=== PATIENT | female | born 2000 | race Caucasian/White ===

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

== ENCOUNTER 2024-05-14 02:45 | Inpatient (IN) ==
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
[2024-05-14 03:06] LABS: Basophils # (auto) 0.04 K/uL (0.00-0.20); Basophils % (auto) 0.2 %; Eosinophils # (auto) 0.02 K/uL (0.00-0.50); Eosinophils % (auto) 0.1 %; Hematocrit (blood only) 40.7 % (37.0-47.0); Hemoglobin 13.4 g/dl (12.0-16.0); Immature Granulocytes # (auto) 0.12 K/uL (0.01-0.20); Immature Granulocytes % (auto) 0.6 %; Lymphocytes # (auto) 1.96 K/uL (1.20-3.40); Lymphocytes % (auto) 9.2 %; Mean Corpuscular Hemoglobin 28.7 pg (25.0-34.0); Mean Corpuscular Hgb Conc 32.9 g/dL (32.0-36.0); Mean Corpuscular Volume 87.2 fL (80.0-100.0); Mean Platelet Volume 8.7 fL (9.4-12.4); Monocytes # (auto) 1.42 K/uL (0.11-0.59); Monocytes % (auto) 6.7 %; Neutrophils # (auto) 17.74 K/uL (1.40-6.50); Neutrophils % (auto) 83.2 %; Platelet Count 265 K/uL (130-400); RDW Coefficient of Variation 12.8 % (11.5-14.5); RDW Standard Deviation 40.4 fL (36.4-46.3); Red Blood Count 4.67 M/uL (4.20-5.40)
--- NOTE | 2024-05-14 03:11 | Urology Consultation ---
Date of Consultation May 14, 2024 Assessment & Plan (1) Kidney stone: I discussed with the treating emergency room physician the patient is being admitted on the hospitalist service. From a urologic perspective we recommend the following: Provide analgesics and antiemetics as needed Recommend hydrated with intravenous fluids Broad-spectrum antibiotics are being initiatedthe treating emergency room physician has already ordered Rocephin which should continue. Will await further results for patient's culture data and antibiotics be tailored based on these results Please keep the patient n.p.o. At the present time the patient is normotensive without fever. She does have a slight tachycardia but is overall hemodynamically stable. I do feel that the patient will require cystoscopic intervention this can be done on a semielective basis on 05/14/2024 as she appears nontoxic at this time Additional recommendations with forthcoming based on her clinical course as unfolds Please call urology if patient becomes hypotensive or febrile as this may require intervention on a more emergent basis History of Present Illness Reason for Consultation: Nephrolithiasis Bacteremia History of Present Illness This is a 23-year-old female who was seen in the emergency department on 05/13/2024. She was seen at that time secondary to a right flank pain. While priyanka velasco was in the emergency department she did undergo labs and imaging and I did review the studies. A CT scan of the abdomen pelvis showed the patient had a kidney stone in the right upper ureter measuring approximately 7 mm and resulting in mild hydronephrosis with some perinephric fat stranding. At that time the patient also underwent labs where CBC revealed white blood cell count was elevated 14.4. Hemoglobin and hematocrit as well as the platelet count were normal. Chemistry profile showed sodium and potassium as well as the BUN and creatinine were normal. Urinalysis at that time showed turbid urine with pyuria greater than 50 white blood cells per high-power field and 3+ leukocyte Estrace. She was noted to have 4+ bacteria in the specimen but was negative for nitrites. A test at that time was negative. The patient was treated with intravenous antibiotics in the treating emergency room physician did discussed with urology and as the patient had improvement of her presenting pain and she was hemodynamically stable was felt that she was suitable for discharge with outpatient follow-up. The patient was discharged on oral cefdinir and the patient notes that she has yet to start taking this medication. (She did receive intravenous Rocephin while in the emergency department) The patient was called by the emergency department staff and requested to come back to the hospital because during her aformentioned emergency department visit she did have 4 blood cultures drawn all of which were positive for gram-negative bacilli. The patient did have a urine culture sent at that time which was pending. (Of note the patient did have a urine culture on 04/15/2021 which grew E. coli which was pansensitive.) The patientre-presented to the emergency department at the request of the emergency department staff as noted above. Since she has been home from her aformentioned emergency department visit she says she is doing well. She previously had right-sided flank pain which is well-controlled. She denies any fevers, shakes, or chills. She denies any nausea or vomiting. She denies any abdominal pain. She denies any dysuria or hematuria. Patient had repeat labs drawn since arrival to the emergency department and her CBC showed white blood cell count is elevated 21.3. Her hemoglobin and hematocrit as well as platelet count were normal. At the time of my interview she was resting comfortably in bed and she was in no distress Allergies Allergy/AdvReac Type Severity Reaction Status Date / Time No Known Allergies Allergy Mild Unverified 02/24/24 11:53 Home Medications Medication Instructions Recorded Confirmed Type albuterol sulfate 90 mcg/actuation 2 puff inhalation QID PRN 05/14/24 05/14/24 History aerosol inhaler (Ventolin HFA) Shortness Of Breath atomoxetine 40 mg capsule 40 mg PO DAILY 05/14/24 05/14/24 History fluticasone propionate 220 2 puff inhalation BID 05/14/24 05/14/24 History mcg/actuation HFA aerosol inhaler tirzepatide (weight loss) 2.5 2.5 mg subcut WK 05/14/24 05/14/24 History mg/0.5 mL subcutaneous pen injector (Zepbound) Patient History Surgical History History of arthroscopic knee surgery Right History of eye surgery History of cholecystectomy Family History Mother Mental disorder Father Mental disorder Grandmother (Paternal) Gastrointestinal disorder High cholesterol Aunt Diabetes Social History Smoking Status: Never smoker Hx Alcohol Use: No Hx Substance Use: No Preferred Language: Hungarian current occupational status: employed Feels Safe at Home: Yes Review of Systems Review of Systems: All systems reviewed & are unremarkable except as noted in HPI & below Physical Exam Constitutional: WD/WN, vitals as above Eyes: no conjunctival abnormality Wears glasses ENMT: Ears: no hearing impairment and no external ear abnormality Mouth: no oropharynx abnormality Neck: trachea midline Respiratory: normal respiratory effort; no respiratory distress and no labored breathing Cardiovascular: Rate/Rhythm: regular rate and regular rhythm Gastrointestinal (Abdomen): Abdomen is rotund but soft. It is nondistended and nonrigid. There is no pain with palpation Musculoskeletal: No calf tenderness. Feet are warm and well-perfused Skin: no rashes Neurologic: moves all extremities Psychiatric: Orientation: alert and oriented x 3 Affect: + flat affect Genitourinary: No CVA tenderness with percussion bilaterally Results & Data Vital Signs (Past 12 Hours) Vital Signs Temp Pulse Pulse Resp BP BP Pulse Ox 05/14/24 03:06 99 H 05/14/24 02:55 103 H 25 H 121/76 94 05/14/24 02:48 36.8 C 103 H 26 H 121/76 95 PG Care Time/CCT Total # of Minutes Spent Total Time Spent with Patient: Total time spent is greater than 50% in coordination of care (as documented) at patient's floor/unit and/or counseling patient: Coding Level of Care Code 74720 IN/OBS CONSULT LVL 5,80M Diagnoses Kidney stone N20.0
[2024-05-14 03:26] LABS: Albumin Level 3.9 gm/dl (3.4-5.0); Bilirubin Direct 0.3 mg/dl (0-0.2); Bilirubin,Total 2.3 mg/dl (0.2-1.0); Calcium 8.8 mg/dl (8.6-10.3); Creatinine Clr Calc Pharmacy 127.6 ml/min; Magnesium 1.5 mg/dl (1.7-2.4); Potassium 3.7 mmol/L (3.5-5.1); Total Protein 7.4 gm/dl (6.0-8.3)
[2024-05-14] MEDS: SODIUM CHLORIDE 0.9% 1,000 ML IV SCH ×2 (03:44→15:26)
[2024-05-14] MEDS: cefTRIAXone SODIUM 2,000 MG/50 ML BAG IV STA (03:56)
[2024-05-14] MEDS: SODIUM CHLORIDE 0.9% 500 ML IV ONE (03:57)
[2024-05-14 04:46] LABS: Troponin I High Sensitivity 3.4 pg/ml (0-14)
--- NOTE | 2024-05-14 06:04 | History & Physical Report ---
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 Patient was in the ER yesterday with right flank pain and vomiting and imaging studies showed 3.7 mm obstructing kidney stone in the right upper ureter with some surrounding perinephric stranding. As the patient's pain was controlled and was doing okay was discharged with antibiotic and pain medication and to follow-up with urology as outpatient. But 4/ 4 of the blood cultures came back positive for gram- negative bacilli and she was called back to the ER. Seen by urology in the ER and plan for cystoscopy intervention soon. Currently patient resting comfortably hemodynamically stable. Says pain is better now. Currently denies any nausea. No fevers. Micturating okay. No hematuria. No chest pain or shortness of breath. No abdominal pain. No runny nose or sore throat or cough. Bacteremia and renal colic 4/4 bottles positive for gram-negative bacilli CT scan done yesterday showed right upper ureter 3.7 mm calculus with mild hydronephrosis and surrounding peripelvic and perinephric fat stranding Plan for cystoscopy Empiric Rocephin IV fluids N.p.o. for now Pain control ADHD Continue home medications Asthma Continue home inhalers Morbid obesity Counseling DVT prophylaxis SCDs for now Disposition Med/telemetry Full code History of Present Illness Chief Complaint: Bacteremia, kidney stone Primary Care Provider: Nicole Schumacher PA-C 23-year-old female with past medical history significant for mild intermittent asthma, morbid obesity, iron deficiency anemia due to chronic blood loss, attention deficit hyperactivity disorder, Asperger's disorder, 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 Patient was in the ER yesterday with right flank pain and vomiting and imaging studies showed 3.7 mm obstructing kidney stone in the right upper ureter with some surrounding perinephric stranding. As the patient's pain was controlled and was doing okay was discharged with antibiotic and pain medication and to follow-up with urology as outpatient. But 4/ 4 of the blood cultures came back positive for gram- negative bacilli and she was called back to the ER. Seen by urology in the ER and plan for cystoscopy intervention soon. Currently patient resting comfortably hemodynamically stable. Says pain is better now. Currently denies any nausea. No fevers. Micturating okay. No hematuria. No chest pain or shortness of breath. No abdominal pain. No runny nose or sore throat or cough. Past medical history. As mentioned above Past surgical history. Right knee arthroscopy. Laparoscopic cholecystectomy. Strabismus surgery. Social history. No smoking. No alcohol use. No drug use. Family history. Great aunt had diabetes. Father had mental disorder. Mother had mental disorder. Allergies Allergy/AdvReac Type Severity Reaction Status Date / Time No Known Allergies Allergy Mild Unverified 02/24/24 11:53 Home Medications Medication Instructions Recorded Confirmed Type albuterol sulfate 90 mcg/actuation 2 puff inhalation QID PRN 05/14/24 05/14/24 History aerosol inhaler (Ventolin HFA) Shortness Of Breath atomoxetine 40 mg capsule 40 mg PO DAILY 05/14/24 05/14/24 History fluticasone propionate 220 2 puff inhalation BID 05/14/24 05/14/24 History mcg/actuation HFA aerosol inhaler tirzepatide (weight loss) 2.5 2.5 mg subcut WK 05/14/24 05/14/24 History mg/0.5 mL subcutaneous pen injector (Zepbound) Past Med/Surg History Problem List (Updated 05/14/24 @ 07:38 by BENJAMIN Lundberg) Calculus of proximal right ureter UTI (urinary tract infection) (Acute) Left ureteral stone (Acute) Sepsis (Acute) Bacteremia (Acute) Kidney stone (Acute) Urgency incontinence Nocturia Urinary incontinence Knee pain, bilateral Abnormal weight gain Kidney stones Asthma Dietary counseling and surveillance Obesity Bipolar disorder (Chronic) Asperger syndrome (Chronic) ADHD (Chronic) Surgical History History of arthroscopic knee surgery Right History of eye surgery History of cholecystectomy Family History Mother Mental disorder Father Mental disorder Grandmother (Paternal) Gastrointestinal disorder High cholesterol Aunt Diabetes Social History Smoking Status: Never smoker Hx Alcohol Use: No Hx Substance Use: No Preferred Language: Georgian current occupational status: employed Feels Safe at Home: Yes Review of Systems Review of Systems: All systems reviewed & are unremarkable except as noted in HPI & below Physical Exam Physical Exam: General- Not in distress. Head- atraumatic ENT- oropharynx clear Neck- supple, no JVD. Lungs- clear to auscultation no wheezing or crackles Heart- regular rate and rhythm; no murmur, no gallop. Abdomen- normal bowel sounds, soft, nontender, no distension Extremities- no pretibial edema, no erythema seen Neuro- alert, oriented no facial palsy; no dysarthria; moves extremities Results & Data Results & Data Vital Signs (Past 12 Hours) Vital Signs Temp Pulse Pulse Resp BP BP Pulse Ox 05/14/24 05:25 94 H 22 112/71 99 05/14/24 04:22 94 H 24 125/89 99 05/14/24 03:42 99 H 24 111/71 98 05/14/24 03:06 99 H 05/14/24 02:55 103 H 25 H 121/76 94 05/14/24 02:48 36.8 C 103 H 26 H 121/76 95 O2 Del Method 05/14/24 05:25 Room Air 05/14/24 04:22 Room Air 05/14/24 03:42 Room Air 05/14/24 03:06 05/14/24 02:55 05/14/24 02:48 Diagnostic Findings Laboratory Results WBC 21.30 K/ul (4.8-10.8) H 05/14/24 02:54 RBC 4.67 M/uL (4.20-5.40) 05/14/24 02:54 Hgb 13.4 g/dl (12.0-16.0) 05/14/24 02:54 Hct 40.7 % (37.0-47.0) 05/14/24 02:54 MCV 87.2 fL (80.0-100.0) 05/14/24 02:54 MCH 28.7 pg (25.0-34.0) 05/14/24 02:54 MCHC 32.9 g/dL (32.0-36.0) 05/14/24 02:54 RDW Std Deviation 40.4 fL (36.4-46.3) 05/14/24 02:54 RDW Coeff of Daniel 12.8 % (11.5-14.5) 05/14/24 02:54 Plt Count 265 K/uL (130-400) 05/14/24 02:54 MPV 8.7 fL (9.4-12.4) L 05/14/24 02:54 Immature Gran % (Auto) 0.6 % 05/14/24 02:54 Neut % (Auto) 83.2 % 05/14/24 02:54 Lymph % (Auto) 9.2 % 05/14/24 02:54 Hubbard % (Auto) 6.7 % 05/14/24 02:54 Eos % (Auto) 0.1 % 05/14/24 02:54 Baso % (Auto) 0.2 % 05/14/24 02:54 Neut # (Auto) 17.74 K/uL (1.40-6.50) H 05/14/24 02:54 Lymph # (Auto) 1.96 K/uL (1.20-3.40) 05/14/24 02:54 Hubbard # (Auto) 1.42 K/uL (0.11-0.59) H 05/14/24 02:54 Eos # (Auto) 0.02 K/uL (0.00-0.50) 05/14/24 02:54 Baso # (Auto) 0.04 K/uL (0.00-0.20) 05/14/24 02:54 Immature Gran # (Auto) 0.12 K/uL (0.01-0.20) 05/14/24 02:54 Sodium 137 mmol/L (136-145) 05/14/24 02:54 Potassium 3.7 mmol/L (3.5-5.1) 05/14/24 02:54 Chloride 106 mmol/L (98-107) 05/14/24 02:54 Carbon Dioxide 23 mmol/L (21-32) 05/14/24 02:54 Anion Gap 8 (3-11) 05/14/24 02:54 BUN 15 mg/dl (6-23) 05/14/24 02:54 Creatinine 1.36 mg/dl (0.6-1.2) H D 05/14/24 02:54 Est Cr Clr Drug Dosing 127.6 ml/min 05/14/24 02:54 eGFR 55.44 05/14/24 02:54 BUN/Creatinine Ratio 11.0 (10-20) 05/14/24 02:54 Glucose 119 mg/dl (70-99(Fasting)) H 05/14/24 02:54 Lactate 0.8 mmol/L (0.4-2.0) 05/14/24 04:03 Calcium 8.8 mg/dl (8.6-10.3) 05/14/24 02:54 Magnesium 1.5 mg/dl (1.7-2.4) L 05/14/24 02:54 Total Bilirubin 2.3 mg/dl (0.2-1.0) H D 05/14/24 02:54 Direct Bilirubin 0.3 mg/dl (0-0.2) H 05/14/24 02:54 AST 15 U/L (13-39) 05/14/24 02:54 ALT 10 U/L (7-52) 05/14/24 02:54 Alkaline Phosphatase 95 U/L (34-104) 05/14/24 02:54 Troponin I High Sens 3.4 pg/ml (0-14) 05/14/24 02:54 Total Protein 7.4 gm/dl (6.0-8.3) 05/14/24 02:54 Albumin 3.9 gm/dl (3.4-5.0) 05/14/24 02:54 Procalcitonin 2.39 ng/ml (0-0.5) H 05/14/24 02:54 ECG Additional Comments: ECG. Normal sinus rhythm with rate of 99. Nonspecific ST and T wave abnormality. QTc 454 Code Status & VTE Plan VTE Prophylaxis Plan VTE Prophylaxis will be ordered: Yes
[2024-05-14 06:33] LABS: Appearance Urine Turbid (Clear); Bacteria Urine Automated 1+ (None Seen); Bilirubin Urine Negative (Negative); Blood Urine 2+ (Negative); Color Urine Yellow; Glucose Urine UA Negative (Negative); Ketones Urine Trace (Negative); Leukocyte Esterase Urine 3+ (Negative); Nitrite Urine Negative (Negative); Protein Urine Trace (Negative); RBC Urine Automated >20 /hpf (0-2); Specific Gravity Urine 1.017 (1.000-1.030); Urobilinogen Urine Negative (Negative); WBC Urine Automated >50 /hpf (0-5); pH Urine 5.5 (4.5-7.5)
--- NOTE | 2024-05-14 07:37 | Urology Progress Note ---
<Statement entered by Jamil Ulrich MD - 05/14/24 11:27> This is a 23-year-old female with a right ureteral stone, UTI and bacteremia. In this setting I would recommend that we proceed with cystoscopy, right retrograde pyelogram and right ureteral stent placement to allow decompression of the right kidney. We discussed risks and benefits of surgery. She expressed understanding and would like to proceed. Date of Service May 14, 2024 Assessment & Plan (1) Calculus of proximal right ureter: (2) UTI (urinary tract infection): (3) Bacteremia: Plan: Follow-up of right proximal ureteral stone, UTI and bacteremia Patient afebrile, hemodynamically stable Labs reviewedcreatinine 1.36 today, WBC 21.3 Blood cultures with gram-negative bacilli Urine culture pending Continue with broad-spectrum antibiotics and narrow per sensitivity data when available Given obstructing right ureteral calculus, UTI and bacteremia, recommend cystoscopy and right ureteral stent placement for source control Ureteral stents were discussed in detail, patient agreeable to surgical intervention We discussed that stone surgery would take place at a later date after acute infection has resolved Proceed to OR today for cystoscopy and right ureteral stent placement Risks and benefits of procedure to be reviewed with patient by Dr. Ulrich Keep NPO for procedure Continue supportive care, antibiotics and medical management per hospital medicine team Subjective Patient seen and examined in the emergency department this morning. She is awake and sitting up in litter. Minimal flank pain at present. Denies nausea, vomiting, fever or chills. Review of Systems Constitutional: as per Subjective / HPI Genitourinary: as per Subjective / HPI Physical Exam Constitutional: well developed, well nourished and + obese; no acute distress Respiratory: normal respiratory effort; no respiratory distress and no labored breathing Gastrointestinal (Abdomen): Inspection/Auscultation: abdomen normal to inspection Musculoskeletal: Head/Neck/Chest: normocephalic Neurologic: moves all extremities and awake Psychiatric: Orientation: alert and oriented x 3 Results & Data Vital Signs (Past 12 Hours) Vital Signs Temp Pulse Pulse Resp BP BP Pulse Ox 05/14/24 06:51 96 H 24 140/89 97 05/14/24 06:21 101 H 20 147/77 H 97 05/14/24 05:25 94 H 22 112/71 99 05/14/24 04:22 94 H 24 125/89 99 05/14/24 03:42 99 H 24 111/71 98 05/14/24 03:06 99 H 05/14/24 02:55 103 H 25 H 121/76 94 05/14/24 02:48 36.8 C 103 H 26 H 121/76 95 O2 Del Method 05/14/24 06:51 Room Air 05/14/24 06:21 Room Air 05/14/24 05:25 Room Air 05/14/24 04:22 Room Air 05/14/24 03:42 Room Air 05/14/24 03:06 05/14/24 02:55 05/14/24 02:48 PG Care Time/CCT Total # of Minutes Spent Total Time Spent with Patient: Total time spent is greater than 50% in coordination of care (as documented) at patient's floor/unit and/or counseling patient: Coding Level of Care Code None Diagnoses Calculus of proximal right ureter N20.1 UTI (urinary tract infection) N39.0 Bacteremia R78.81
--- NOTE | 2024-05-14 09:19 | Anesthesiology Consultation ---
Date of Service May 14, 2024 Assessment & Plan (1) Encounter for pre-operative examination: Chart Review Chart Review: Acceptable Risk for Surgery and Patient NOT seen in Pre Admission Testing Consults Requested none History Surgery Operation Date: 05/14/24 08:10 Proposed Procedures p Cystoscopy, Right Ureteral Stent Placement - Jamil Ulrich MD Height/Weight Height: 6 ft 3 in Weight: 199.6 kg Allergies Allergy/AdvReac Type Severity Reaction Status Date / Time No Known Allergies Allergy Mild Unverified 02/24/24 11:53 Medications Home Medications Medication Instructions Recorded Confirmed Last Taken albuterol sulfate 90 mcg/actuation 2 puff inhalation QID PRN 05/14/24 05/14/24 Unknown aerosol inhaler (Ventolin HFA) Shortness Of Breath atomoxetine 40 mg capsule 40 mg PO DAILY 05/14/24 05/14/24 Unknown fluticasone propionate 220 2 puff inhalation BID 05/14/24 05/14/24 Unknown mcg/actuation HFA aerosol inhaler tirzepatide (weight loss) 2.5 2.5 mg subcut WK 05/14/24 05/14/24 Unknown mg/0.5 mL subcutaneous pen injector (Zepbound) Past Family History Family History Mother Mental disorder Father Mental disorder Grandmother (Paternal) Gastrointestinal disorder High cholesterol Aunt Diabetes Past Surgical History Surgical History History of arthroscopic knee surgery Right History of eye surgery History of cholecystectomy Social History Smoking Status: Never smoker Hx Alcohol Use: No Hx Substance Use: No Physical Exam Vital Signs Last Vital Signs Temp 98.2 F 05/14/24 02:48 Pulse 93 H 05/14/24 09:14 Resp 22 05/14/24 07:30 BP 144/92 H 05/14/24 07:30 Pulse Ox 99 05/14/24 07:30 O2 Del Method Room Air 05/14/24 07:30 Testing Laboratory Results 05/14/24 02:54 05/14/24 02:54 Urine Color Yellow 05/14/24 06:22 Urine Appearance Turbid (Clear) A 05/14/24 06:22 Urine pH 5.5 (4.5-7.5) 05/14/24 06:22 Ur Specific [place] 1.017 (1.000-1.030) 05/14/24 06:22 Urine Protein Trace (Negative) H 05/14/24 06:22 Urine Glucose (UA) Negative (Negative) 05/14/24 06:22 Urine Ketones Trace (Negative) H 05/14/24 06:22 Urine Nitrite Negative (Negative) 05/14/24 06:22 Ur Leukocyte Esterase 3+ (Negative) H 05/14/24 06:22 Urine WBC (Auto) >50 /hpf (0-5) H 05/14/24 06:22 Urine RBC (Auto) >20 /hpf (0-2) H 05/14/24 06:22 U Hyaline Cast (Auto) 3-5 /lpf (0-2) H 05/14/24 06:22 U Epithel Cells (Auto) 3-5 /hpf (0-2) H 05/14/24 06:22 Urine Bacteria (Auto) 1+ (None Seen) H 05/14/24 06:22 Electrocardiogram Date: 05/14/24 Findings: + NSR @
[2024-05-14] MEDS ORDERED: LIDOCAINE 2% 2 ML VIAL/AMP(20MG/ML) INFIL ONE ×2 (09:34→10:09)
[2024-05-14] MEDS ORDERED: MIDAZOLAM HCL 1 MG/ML 2ML VIAL ONE ×2 (09:35→10:11)
[2024-05-14] MEDS ORDERED: fentaNYL citrate PF 100 MCG/2 ML VIAL ONE ×2 (09:35→10:11)
[2024-05-14] MEDS ORDERED: PROPOFOL IV EMULSION 10 MG/ML 20 ML VIAL IV ONE ×3 (09:35→11:52)
[2024-05-14] MEDS ORDERED: ONDANSETRON INJ 2 MG/ML 2 ML VIAL ONE ×2 (10:09→11:55)
[2024-05-14] MEDS ORDERED: ROCURONIUM BROMIDE 10 MG/ML 5 ML VIAL IV ONE (10:09)
[2024-05-14] MEDS ORDERED: DEXAMETHASONE SOD INJ 4 MG/ML VIAL ONE (10:09)
[2024-05-14 10:19] LABS: Pregnancy Test, Urine Negative (Negative)
[2024-05-14] MEDS ORDERED: GLYCOPYRROLATE 0.2 MG/ML VIAL ONE (10:39)
[2024-05-14] MEDS ORDERED: KETAMINE HCL 10MG/ML SYR ONE (10:42)
[2024-05-14] MEDS: DIATRIZOATE MEGLUMINE 30% 100ML VIAL INSTIL ONE (12:08)
--- NOTE | 2024-05-14 12:12 | Operative Report ---
[facility] Post Operative Report Pre & Post Diagnosis Operation Date: 05/14/24 08:10 Pre-Op Diagnosis: (1) Calculus of proximal right ureter (2) UTI (urinary tract infection) (3) Bacteremia Post-Op Diagnosis: (1) Calculus of proximal right ureter (2) UTI (urinary tract infection) (3) Bacteremia I identified the patient and participated in the time-out.: Yes Procedure Operation Date: 05/14/24 08:10 Actual Procedures p Cystoscopy, Right Retrograde Pyelogram, Right Ureteral Stent Placement(Right) - Jamil Ulrich MD Surgeon Jamil Ulrich MD Director Of Market Intelligence None Estimated Blood Loss 0 Findings Consistent with Post-Op Diagnosis Specimens None Drains 6 Turkmen by 26 cm double-J ureteral stent in the right ureter Anesthesia Type MAC Complications none Disposition Accompanied Patient To Recovery: Yes Disposition: Recovery Room Indications This is a 23-year-old female recently seen in the emergency department with urinary tract infection and a right ureteral stone as well as bacteremia. She is brought to the OR for right ureteral stent placement for source control. Description of Procedure The patient was identified in the holding area and informed consent was confirmed. She was marked on the right side, then was taken to the operating room where anesthesia was initiated. She was placed in the dorsal lithotomy position with all pressure points appropriately padded. She was prepped and draped in the usual sterile fashion and a preoperative timeout was performed. A well-lubricated cystoscope was inserted per urethra and panendoscopy was performed. The urethra was normal in appearance. The bladder was of normal size with ureteral orifices in orthotopic position. The right ureteral orifice was identified and cannulated with a 5 Turkmen open- ended catheter. A retrograde pyelogram was performed demonstrating the distal ureter was normal in course and caliber. I tried to minimize instillation of contrast to the kidney to avoid pyelovenous backflow. A 0.038" ZIPwire was advanced to the level of the kidney under fluoroscopic guidance. Over the wire, a 6 Turkmen x 26 centimeter double-J ureteral stent was advanced. When the wire was removed, the proximal curl was visualized in the kidney with x-ray, and the distal curl visualized in the bladder with the cystoscope. There was drainage of turbid urine through the stent. At this point the bladder was drained and all instrumentation was removed. The patient was then awakened from anesthesia and was brought to the PACU in stable condition. I attest to the content of the Intraoperative Record and any orders documented therein. Any exceptions are noted below.
--- NOTE | 2024-05-14 13:23 | Fluoroscopy Report ---
FL retrograde includes kub CLINICAL HISTORY: RT CYSTO COMPARISON STUDY: CT of the abdomen and pelvis May 13, 2024. FLUOROSCOPY TIME: 13 seconds. Ka,r: 6.2585 mGy FLUOROSCOPIC IMAGES: 1 FINDINGS: Fluoroscopy was provided during right retrograde exam with right ureteral stent placement. Proximal aspect of the stent projects over the right renal pelvis. There are cholecystectomy clips. IMPRESSION: Fluoroscopy provided during right retrograde exam with right ureteral stent placement. ACT 112: Negative or not required by law. Electronically signed by: Sylvester Gottlieb M.D. 05/14/2024 1:22 PM
[2024-05-14] MEDS ORDERED: HYDROmorphone INJ 0.5 MG/0.5 ML SYR IV PRN ×2 (14:12)
[2024-05-14] MEDS ORDERED: ALBUTEROL HFA 8 GM INHALER INH PRN (14:12)
[2024-05-14] MEDS ORDERED: NITROGLYCERIN SL 0.4 MG/TAB TAB SL PRN (14:12)
[2024-05-14] MEDS ORDERED: POLYETHYLENE (MIRALAX) 17 GM PACK PO PRN (14:12)
--- NOTE | 2024-05-14 14:21 | Anesthesiology Progress Note ---
Date of Service May 14, 2024 Anesthesia Post Procedure Vital Signs Vital Signs: Temp Pulse Pulse Pulse Resp BP BP 05/14/24 13:30 98 H 18 116/81 05/14/24 13:20 97.9 F 96 H 18 117/77 05/14/24 13:10 94 H 22 120/80 05/14/24 13:00 95 H 24 121/78 05/14/24 12:50 96 H 20 109/71 05/14/24 12:40 94 H 20 106/72 05/14/24 12:30 95 H 18 102/69 05/14/24 12:25 93 H 20 109/71 05/14/24 12:19 99.7 F H 100 H 18 109/73 05/14/24 10:55 05/14/24 10:35 98.4 F 108 H 16 05/14/24 10:14 98 H 22 05/14/24 09:14 93 H 05/14/24 07:30 94 H 22 05/14/24 06:51 96 H 24 05/14/24 06:21 101 H 20 05/14/24 05:25 94 H 22 05/14/24 04:22 94 H 24 05/14/24 03:42 99 H 24 05/14/24 03:06 99 H 05/14/24 02:55 103 H 25 H 05/14/24 02:48 98.2 F 103 H 26 H 121/76 BP Pulse Ox O2 Del Method O2 Flow Rate 05/14/24 13:30 98 Room Air 05/14/24 13:20 98 Room Air 05/14/24 13:10 100 Room Air 05/14/24 13:00 98 Room Air 05/14/24 12:50 98 Room Air 05/14/24 12:40 98 Room Air 05/14/24 12:30 100 Room Air 05/14/24 12:25 100 Oxymask 3 05/14/24 12:19 100 Oxymask 6 05/14/24 10:55 Room Air 05/14/24 10:35 115/73 98 Room Air 05/14/24 10:14 119/78 99 Room Air 05/14/24 09:14 05/14/24 07:30 144/92 H 99 Room Air 05/14/24 06:51 140/89 97 Room Air 05/14/24 06:21 147/77 H 97 Room Air 05/14/24 05:25 112/71 99 Room Air 05/14/24 04:22 125/89 99 Room Air 05/14/24 03:42 111/71 98 Room Air 05/14/24 03:06 05/14/24 02:55 121/76 94 05/14/24 02:48 95 Pain Intensity Right Flank: Pain Intensity: 4 Transfer of Care Handoff Completed per policy Notes Mental Status: alert / awake / arousable and participated in evaluation Patient Amnestic to Procedure: Yes Nausea / Vomiting: adequately controlled Pain: adequately controlled Airway Patency, RR, SpO2: stable & adequate BP & HR: stable & adequate Hydration State: stable & adequate Anesthetic Complications: no major complications apparent and Pt Satisfied with anesthetic care
--- NOTE | 2024-05-14 14:32 | Hospitalist Progress Note ---
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 E coli bacteremia Right-sided ureteral stone status post cystoscopy and stent placement on 05/14 Patient presented with flank pain and vomiting CT abdomen pelvis showed right upper ureter 3.7 cm calculus with mild hydronephrosis. 4 out of 4 blood culture positive for E. coli Continue on IV antibiotics with ceftriaxone 2 g; plan to treat with IV antibiotics for few days before transitioning to p.o. antibiotics Follow-up with urology as outpatient Encourage oral hydration ADHD Continue home medications Asthma Continue home inhalers Morbid obesity Counseling DVT prophylaxis SCDs for now Disposition Med/telemetry Full code Please note the above document was generated using voice recognition software. It may contain grammatical, syntax or spelling errors. Any formal questions or concerns about the content, text or information contained within the body of this dictation should be directly addressed to the provider for clarification Admission and Anticipated Discharge Date Admission Date: May 14, 2024 Subjective Patient seen after the procedure. She is comfortable; denies pain or discomfort. Denies fever, chills, chest pain, shortness of breath, abdominal pain or urinary symptoms. Review of Systems Review of Systems: All systems reviewed & are unremarkable except as noted in Subjective Physical Exam Physical Exam: General- Not in distress. Head- atraumatic ENT- oropharynx clear Neck- supple, no JVD. Lungs- clear to auscultation no wheezing or crackles Heart- regular rate and rhythm; no murmur, no gallop. Abdomen- normal bowel sounds, soft, nontender, no distension Extremities- no pretibial edema, no erythema seen Neuro- alert, oriented no facial palsy; no dysarthria; moves extremities Results & Data Results & Data Vital Signs (Past 12 Hours) Vital Signs Temp Pulse Pulse Pulse Resp BP BP 05/14/24 13:30 98 H 18 116/81 05/14/24 13:20 36.6 C 96 H 18 117/77 05/14/24 13:10 94 H 22 120/80 05/14/24 13:00 95 H 24 121/78 05/14/24 12:50 96 H 20 109/71 05/14/24 12:40 94 H 20 106/72 05/14/24 12:30 95 H 18 102/69 05/14/24 12:25 93 H 20 109/71 05/14/24 12:19 37.6 C H 100 H 18 109/73 05/14/24 10:55 05/14/24 10:35 36.9 C 108 H 16 05/14/24 10:14 98 H 22 05/14/24 09:14 93 H 05/14/24 07:30 94 H 22 05/14/24 06:51 96 H 24 05/14/24 06:21 101 H 20 05/14/24 05:25 94 H 22 05/14/24 04:22 94 H 24 05/14/24 03:42 99 H 24 05/14/24 03:06 99 H 05/14/24 02:55 103 H 25 H 05/14/24 02:48 36.8 C 103 H 26 H 121/76 BP Pulse Ox O2 Del Method O2 Flow Rate 05/14/24 13:30 98 Room Air 05/14/24 13:20 98 Room Air 05/14/24 13:10 100 Room Air 05/14/24 13:00 98 Room Air 05/14/24 12:50 98 Room Air 05/14/24 12:40 98 Room Air 05/14/24 12:30 100 Room Air 05/14/24 12:25 100 Oxymask 3 05/14/24 12:19 100 Oxymask 6 05/14/24 10:55 Room Air 05/14/24 10:35 115/73 98 Room Air 05/14/24 10:14 119/78 99 Room Air 05/14/24 09:14 05/14/24 07:30 144/92 H 99 Room Air 05/14/24 06:51 140/89 97 Room Air 05/14/24 06:21 147/77 H 97 Room Air 05/14/24 05:25 112/71 99 Room Air 05/14/24 04:22 125/89 99 Room Air 05/14/24 03:42 111/71 98 Room Air 05/14/24 03:06 05/14/24 02:55 121/76 94 05/14/24 02:48 95
--- NOTE | 2024-05-14 15:17 | Electrocardiogram Report ---
Test Reason : Blood Pressure : */* mmHG Vent. Rate : 99 BPM Atrial Rate : 99 BPM P-R Int : 120 ms QRS Dur : 90 ms QT Int : 354 ms P-R-T Axes : 44 31 67 degrees QTcB Int : 454 ms Normal sinus rhythm Nonspecific ST and T wave abnormality Abnormal ECG When compared with ECG of 26-Apr-2020 17:52, Vent. rate has increased by 36 bpm T wave inversion now evident in Lateral leads Confirmed by Yomi Reno ([id number]) on 05/14/2024 3:17:41 PM Referred By: REFERRED SELF Confirmed By: Yomi Reno
[2024-05-14] MEDS: ATOMOXETINE HCL 40 MG CAPSULE PO SCH (16:33)
[2024-05-14] MEDS: FLUTICASONE FUROATE 100MCG 14 PUFFS/INHALER INH SCH (16:33)
[2024-05-15] MEDS: cefTRIAXone SODIUM 2,000 MG/50 ML BAG IV SCH (06:00)
[2024-05-15 08:40] LABS: Basophils # (auto) 0.03 K/uL (0.00-0.20); Basophils % (auto) 0.2 %; Eosinophils # (auto) 0.04 K/uL (0.00-0.50); Eosinophils % (auto) 0.3 %; Hematocrit (blood only) 38.6 % (37.0-47.0); Hemoglobin 12.8 g/dl (12.0-16.0); Immature Granulocytes # (auto) 0.26 K/uL (0.01-0.20); Immature Granulocytes % (auto) 1.7 %; Lymphocytes # (auto) 1.95 K/uL (1.20-3.40); Lymphocytes % (auto) 12.7 %; Mean Corpuscular Hemoglobin 28.6 pg (25.0-34.0); Mean Corpuscular Hgb Conc 33.2 g/dL (32.0-36.0); Mean Corpuscular Volume 86.2 fL (80.0-100.0); Mean Platelet Volume 9.3 fL (9.4-12.4); Monocytes # (auto) 1.11 K/uL (0.11-0.59); Monocytes % (auto) 7.2 %; Neutrophils # (auto) 11.93 K/uL (1.40-6.50); Neutrophils % (auto) 77.9 %; Platelet Count 263 K/uL (130-400); RDW Coefficient of Variation 12.6 % (11.5-14.5); RDW Standard Deviation 39.9 fL (36.4-46.3); Red Blood Count 4.48 M/uL (4.20-5.40); White Blood Count 15.32 K/ul (4.8-10.8)
[2024-05-15 09:05] LABS: BUN Creatinine Ratio 13.3 (10-20); Calcium 8.5 mg/dl (8.6-10.3); Creatinine Clr Calc Pharmacy 202.4 ml/min; Potassium 3.5 mmol/L (3.5-5.1)
--- NOTE | 2024-05-15 10:10 | Hospitalist Progress Note ---
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 E coli bacteremia Right-sided ureteral stone status post cystoscopy and stent placement on 05/14 Patient presented with flank pain and vomiting CT abdomen pelvis showed right upper ureter 3.7 cm calculus with mild hydronephrosis. 4 out of 4 blood culture positive for E. coli Reviewed blood culture negative so far Continue on IV antibiotics with ceftriaxone 2 g; plan to treat with IV antibiotics for few days before transitioning to p.o. antibiotics Follow-up with urology as outpatient Encourage oral hydration Acute kidney injury- Creatinine elevated to 1.36 on 05/14/2024; resolved with IV hydration ADHD Continue home medications Asthma Continue home inhalers Morbid obesity Counseling DVT prophylaxis SCDs for now Disposition Med/telemetry Full code Updated patient's grandmother over the phone on patient's request. Time spent evaluating patient, direct bedside care, chart review, placing orders, interpretation of diagnostic studies, discussion with consultants, patient, and family members, as well as other required patient management activities is 50 minutes Please note the above document was generated using voice recognition software. It may contain grammatical, syntax or spelling errors. Any formal questions or concerns about the content, text or information contained within the body of this dictation should be directly addressed to the provider for clarification Admission and Anticipated Discharge Date Admission Date: May 14, 2024 Subjective Patient seen and examined at bedside. Comfortable; not in distress. Denies fever, chills, chest pain, shortness of breath, abdominal pain or urinary symptoms. No significant overnight events Review of Systems Review of Systems: All systems reviewed & are unremarkable except as noted in Subjective Physical Exam Physical Exam: General- Not in distress. Head- atraumatic ENT- oropharynx clear Neck- supple, no JVD. Lungs- clear to auscultation no wheezing or crackles Heart- regular rate and rhythm; no murmur, no gallop. Abdomen- normal bowel sounds, soft, nontender, no distension Extremities- no pretibial edema, no erythema seen Neuro- alert, oriented no facial palsy; no dysarthria; moves extremities Results & Data Results & Data Vital Signs (Past 12 Hours) Vital Signs Temp Pulse Pulse Pulse Resp BP Pulse Ox 05/15/24 07:53 36.5 C 112 H 18 116/78 95 05/15/24 03:51 36.6 C 94 H 18 107/60 94 05/14/24 23:48 37.6 C H 112 H 18 98/61 L 93 05/14/24 22:42 114 H O2 Del Method 05/15/24 07:53 Room Air 05/15/24 03:51 Room Air 05/14/24 23:48 Room Air 05/14/24 22:42
--- NOTE | 2024-05-15 10:20 | Urology Progress Note ---
Date of Service May 15, 2024 Assessment & Plan (1) Calculus of proximal right ureter: (2) Bacteremia: (3) UTI (urinary tract infection): Plan 23 yo/F admitted for bacteremia and an obstructing right ureteral stone. - Pt POD#1 s/p cystoscopy and right ureteral stent placement - Afebrile, tachycardic, normotensive - Subjectively doing well - Lab work reviewed - creatinine 0.83, WBC downtrending (15.32) - Blood cultures 2/ with E. coli - Urine culture 2/ with more than 3 types of organisms present, all high counts - Repeat blood cultures / with no growth x 24 hours - Repeat urine culture / pending - Continue with broad-spectrum antibiotics and narrow per sensitivity data when available - Tolerating right ureteral stent with minimal bother - Expected clinical course reviewed, all questions answered - Will arrange outpatient follow-up with our service to discuss definitive stone treatment - will sign off, recall as needed Admission and Anticipated Discharge Date Admission Date: May 14, 2024 Subjective Patient seen and examined at bedside this morning. She is awake and sitting up in bed. No acute issues overnight. Denies flank pain. Voiding spontaneously. No hematuria or dysuria. Denies nausea, vomiting, fever or chills. Review of Systems Constitutional: as per Subjective / HPI Genitourinary: as per Subjective / HPI Physical Exam Constitutional: + obese; no acute distress Respiratory: normal respiratory effort; no respiratory distress and no labored breathing Gastrointestinal (Abdomen): Inspection/Auscultation: abdomen normal to inspection Musculoskeletal: Head/Neck/Chest: normocephalic Neurologic: moves all extremities and awake Psychiatric: Orientation: alert and oriented x 3 Results & Data Vital Signs (Past 12 Hours) Vital Signs Temp Pulse Pulse Pulse Resp BP Pulse Ox 05/15/24 07:53 36.5 C 112 H 18 116/78 95 05/15/24 03:51 36.6 C 94 H 18 107/60 94 05/14/24 23:48 37.6 C H 112 H 18 98/61 L 93 05/14/24 22:42 114 H O2 Del Method 05/15/24 07:53 Room Air 05/15/24 03:51 Room Air 05/14/24 23:48 Room Air 05/14/24 22:42 PG Care Time/CCT Total # of Minutes Spent Total Time Spent with Patient: Total time spent is greater than 50% in coordination of care (as documented) at patient's floor/unit and/or counseling patient: Coding Level of Care Code 27630 SUB INP/OBS CARE 04/25MIN Diagnoses Calculus of proximal right ureter N20.1 Bacteremia R78.81 UTI (urinary tract infection) N39.0
[2024-05-15] MEDS: HEPARIN SOD 5,000 UNIT/0.5 ML VIAL SQ SCH (15:13)
[2024-05-15] MEDS: carBAMazepine 200 MG TABLET PO SCH (23:08)
[2024-05-15] MEDS: ACETAMINOPHEN 325 MG TAB PO PRN (23:08)
[2024-05-16 07:38] LABS: Basophils # (auto) 0.02 K/uL (0.00-0.20); Basophils % (auto) 0.2 %; Eosinophils # (auto) 0.21 K/uL (0.00-0.50); Hemoglobin 11.7 g/dl (12.0-16.0); Immature Granulocytes # (auto) 0.03 K/uL (0.01-0.20); Immature Granulocytes % (auto) 0.3 %; Lymphocytes # (auto) 1.75 K/uL (1.20-3.40); Mean Corpuscular Hemoglobin 28.9 pg (25.0-34.0); Mean Corpuscular Hgb Conc 33.4 g/dL (32.0-36.0); Mean Corpuscular Volume 86.4 fL (80.0-100.0); Mean Platelet Volume 9.6 fL (9.4-12.4); Monocytes # (auto) 0.96 K/uL (0.11-0.59); Monocytes % (auto) 9.3 %; Neutrophils # (auto) 7.35 K/uL (1.40-6.50); Neutrophils % (auto) 71.2 %; Platelet Count 223 K/uL (130-400); RDW Coefficient of Variation 12.7 % (11.5-14.5); RDW Standard Deviation 40.3 fL (36.4-46.3); Red Blood Count 4.05 M/uL (4.20-5.40); White Blood Count 10.32 K/ul (4.8-10.8)
[2024-05-16 08:01] LABS: BUN Creatinine Ratio 16.2 (10-20); Calcium 8.3 mg/dl (8.6-10.3); Creatinine Clr Calc Pharmacy 227.6 ml/min; Potassium 3.4 mmol/L (3.5-5.1)
[2024-05-16] MEDS ORDERED: ADVANCED PROBIOTIC 625 MG CAPSULE PO SCH (09:00)
--- NOTE | 2024-05-18 14:59 | Discharge Summary ---
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 Patient was in the ER yesterday with right flank pain and vomiting and imaging studies showed 3.7 mm obstructing kidney stone in the right upper ureter with some surrounding perinephric stranding. As the patient's pain was controlled and was doing okay was discharged with antibiotic and pain medication and to follow-up with urology as outpatient. But 4/ 4 of the blood cultures came back positive for gram- negative bacilli and she was called back to the ER. Seen by urology in the ER and plan for cystoscopy intervention soon. Currently patient resting comfortably hemodynamically stable. Says pain is better now. Currently denies any nausea. No fevers. Micturating okay. No hematuria. No chest pain or shortness of breath. No abdominal pain. No runny nose or sore throat or cough. Past medical history. As mentioned above Past surgical history. Right knee arthroscopy. Laparoscopic cholecystectomy. Strabismus surgery. Social history. No smoking. No alcohol use. No drug use. Family history. Great aunt had diabetes. Father had mental disorder. Mother had mental disorder. Admission Exam Per Admitting Provider General- Not in distress. Head- atraumatic ENT- oropharynx clear Neck- supple, no JVD. Lungs- clear to auscultation no wheezing or crackles Heart- regular rate and rhythm; no murmur, no gallop. Abdomen- normal bowel sounds, soft, nontender, no distension Extremities- no pretibial edema, no erythema seen Neuro- alert, oriented no facial palsy; no dysarthria; moves extremities Principal Diagnosis E coli bacteremia Right-sided ureteral stone status post cystoscopy and stent placement on 05/14 Acute kidney injury- Discharge Exam General- Not in distress. Head- atraumatic ENT- oropharynx clear Neck- supple, no JVD. Lungs- clear to auscultation no wheezing or crackles Heart- regular rate and rhythm; no murmur, no gallop. Abdomen- normal bowel sounds, soft, nontender, no distension Extremities- no pretibial edema, no erythema seen Neuro- alert, oriented no facial palsy; no dysarthria; moves extremities Discharge Data Allergies Allergy/AdvReac Type Severity Reaction Status Date / Time No Known Allergies Allergy Mild Unverified 02/24/24 11:53 Consultations 05/14/24 02:52 Consult Urology Stat 05/14/24 03:09 ED Decision to Admit Stat Procedures Performed Operation Date: 05/14/24 08:10 Actual Procedures p Cystoscopy, Right Retrograde Pyelogram, Right Ureteral Stent Placement(Right) - Jamil Ulrich MD Ordered Studies 05/14/24 [place] retrograde includes kub Routine Hospital Course (1) Bacteremia: 23-year-old female with past medical history significant for mild intermittent asthma, morbid obesity, iron deficiency anemia due to chronic blood loss, attention deficit hyperactivity disorder, Asperger's disorder, 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 E coli bacteremia Right-sided ureteral stone status post cystoscopy and stent placement on 05/14 Patient presented with flank pain and vomiting CT abdomen pelvis showed right upper ureter 3.7 cm calculus with mild hydronephrosis. 4 out of 4 blood culture positive for E. coli Reviewed blood culture negative so far Patient was treated with IV ceftriaxone during the hospitalization. At discharge, she was placed on ciprofloxacin to complete the antibiotic course. Patient to follow-up with urology for definitive stone management. Acute kidney injury- Creatinine elevated to 1.36 on 05/14/2024; resolved with IV hydration Please note the above document was generated using voice recognition software. It may contain grammatical, syntax or spelling errors. Any formal questions or concerns about the content, text or information contained within the body of this dictation should be directly addressed to the provider for clarification Total Time Total Time Spent Total Time Spent (In Minutes): 45 Total Time Includes: Examination of the Patient, Discharge Planning, Medication Reconciliation, Communication With Other Providers and Other Discharge Plan Discharge Items Patient Disposition: Home - Self-Care Reason For Visit: BACTERMIA, RENAL STONE Discharge Diagnosis: E coli bacteremia Right-sided ureteral stone status post cystoscopy and stent placement on 05/14 Activity: Resume your previous activity Non-emergency contact: Primary Care Provider Call non-emergency contact if: you have any medication questions and your symptoms worsen Follow-up/Referrals: Nicole Schumacher PA-C [Primary Care Provider] - 05/22/24 1:40 pm (Date & Time 05/22/2024 1:40 PM Provider: Nicole Schumacher PA-C [facility], [facility] ) Diet: Regular Addtl Attending Provider Instructions: You were admitted to the hospital with infection in your urine and blood. You are treated with antibiotic during the hospitalization. You are prescribed ciprofloxacin 750 mg twice a day for 7 more days to complete the antibiotic course. Please take probiotics while you are on the antibiotics. You are found to have right-sided ureteral stone for which you underwent cystoscopy and stent placement by urology on May 14, 2024. Please follow- up with urology for definitive stone management. Pending Studies at Discharge: No Stand-Alone Forms: My [facility] [employer], Smoking Cessation Medications and DC Order Prescriptions: New ciprofloxacin HCl 750 mg tablet 750 mg PO BID 7 Days Qty: 14 0RF Advanced Probiotic 625 mg (10 billion cell) Capsule 2 cap PO DAILY 7 Days Qty: 14 0RF Continued fluticasone propionate 220 mcg/actuation Hfa Aerosol Inhaler 2 puff INHALATION BID albuterol sulfate [Ventolin HFA] 90 mcg/actuation Hfa Aerosol Inhaler 2 puff INHALATION QID PRN (Reason: Shortness Of Breath) Zepbound 2.5 mg/0.5 mL Pen Injector 2.5 mg SUBCUT WK Discharge Orders: Discharge Order (Routine); Ordered 05/16/24 Ordered By: Kaleb Vallejo Admission Data Admit Date/Time: 05/14/24 05:59 Attending Provider: Kaleb Vallejo Admit Provider: Virgilio Javier Primary Care Provider: Nicole Schumacher Other Providers: Virgilio Javier; Jamil Ulrich; Ceasar Baird Other Interventions: Discharge Summary Assessment (RN) Last Done: 05/16/24 09:00
== END 2024-05-16 10:54 | disposition home or self-care (01) | DRG 660 ==
LOC: ED 02:45 → EDINP 05:59 → 2W 14:04
DX: F90.9 Attention-deficit hyperactivity disorder, unspecified type; Z79.85 Long-term (current) use of injectable non-insulin antidiabetic drugs; F84.5 Asperger's syndrome; D72.829 Elevated white blood cell count, unspecified; N17.9 Acute kidney failure, unspecified; D50.0 Iron deficiency anemia secondary to blood loss (chronic); E66.01 Morbid (severe) obesity due to excess calories; Z79.899 Other long term (current) drug therapy; Z90.49 Acquired absence of other specified parts of digestive tract; R78.81 Bacteremia; Z79.51 Long term (current) use of inhaled steroids; B96.20 Unspecified Escherichia coli [E. coli] as the cause of diseases classified elsewhere; Z68.43 Body mass index [BMI] 50.0-59.9, adult; N20.1 Calculus of ureter; N39.0 Urinary tract infection, site not specified; J45.20 Mild intermittent asthma, uncomplicated